=== PATIENT | female | born 1970 | race Caucasian/White ===

== ENCOUNTER 2017-07-21 12:44 | Emergency (ER) | payer BC ==
[~2017-07-21] VITALS: Ht 175.3 cm; Wt 95.3 kg
--- NOTE | ~2017-07-21 | EKG ---
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
[~2017-07-21 12:44] MED LIST: ATIVAN1 MG PO; CIPRO; IBUPROFEN 600600 M1 PO; MECLIZINE 25 MG25 M1 PO
[2017-07-21 13:31] LABS: ABSOLUTE NEUTROPHILS 6.3 thou/uL (1.4-8.2); BASOPHILS 0.4 % (0.0-2.0); EOSINOPHILS 1.5 % (0.0-3.0); HEMATOCRIT 43.7 % (37.0-47.0); HEMOGLOBIN 14.8 gm/dL (12.0-15.0); LYMPHOCYTES 22.6 % (24.0-44.0); MCHC 33.8 g/dL (28.0-37.0); MCV 91.7 fL (80.0-100.0); MONOCYTES 5.1 % (1.0-8.0); PLATELET COUNT 246 thou/uL (150-400); POLYS 70.4 % (36.0-66.0); RBC 4.77 mil/uL (4.20-5.00); RDW 13.4 % (10.5-14.5); WBC 8.9 thou/uL (4.0-11.0)
[2017-07-21 13:33] LABS: ANION GAP 10 mmol/L (7-16); BUN 23 mg/dL (7-18); CHLORIDE 105 mmol/L (98-107); CO2 26 mmol/L (21-32); CREATININE 0.8 mg/dL (0.6-1.0); GLUCOSE 107 mg/dL (74-106); POTASSIUM 3.7 mmol/L (3.5-5.1); SODIUM 141 mmol/L (136-145)
[2017-07-21 13:42] LABS: TROPONIN-I < 0.04 ng/mL (<0.06)
[2017-07-21] MEDS ORDERED: NORFLEX100 MG PO (14:13)
[2017-07-21] MEDS ORDERED: ULTRAM 50MG TAB50 MG PO (14:13)
[2017-07-21] MEDS ORDERED: NAPROSYN500 MG PO (14:13)
== END 2017-07-21 14:39 | disposition home or self-care (01) ==
LOC: ER 12:44
PROVIDERS: Emergency Medicine
DX: R07.89 Other chest pain (principal); M79.7 Fibromyalgia